=== PATIENT | female | born 1990 | race American Indian/Alaskan Native ===

== ENCOUNTER 2016-12-06 00:22 | Emergency (ER) | payer BC ==
[2016-12-06 04:27] LABS: Bilirubin,Urine NEG (Negative); Blood,Urine NEG (Negative); Ketones,Urine NEG (Negative); Leukocyte Esterase,Urine SM (Negative); Mucus,Urine FEW /HPF; Nitrite,Urine NEG (Negative); Protein,Urine <15 mg/dL mg/dL (Negative)
--- NOTE | 2016-12-06 06:17 | Emergency Department Report ---
ED General Adult HPI - General Chief complaint: Back Pain/Injury Stated complaint: LOWER R BACK PAIN Time Seen by Provider: 12/06/16 06:13 Source: patient Mode of arrival: Ambulatory Limitations: No Limitations - History of Present Illness Initial comments: pt is a 26 y/o aaf with who presents for low back pain with urinary frequency urgency and hesitency x 1 week , LMP 07/2016 on norplant , pt is not sexually active for past 2 yrs, there is no fever no chills no n/v Onset/Timin -: week(s) Radiation: flank Severity scale (0 -10): 7 Quality: sharp Consistency: intermittent Improves with: none, other (nsaid) Worsens with: other (voiding ) Associated Symptoms: denies: confusion, chest pain, cough, diaphoresis, fever/ chills, headaches, loss of appetite, malaise, nausea/vomiting, rash, shortness of breath, syncope, weakness Treatments Prior to Arrival: NSAID - Related Data Home Medications Medication Instructions Recorded Confirmed Last Taken Flexeril 10 MG TAB 10 mg PO TID PRN 12/06/16 12/06/16 1 Day Ago Ibuprofen 600 mg PO TID PRN 12/06/16 12/06/16 1 Day Ago Previous Rx's Medication Instructions Recorded Last Taken Type Cephalexin [Keflex] 500 mg PO Q12HR #14 cap 12/06/16 Unknown Rx Naproxen 500 mg PO BID PRN #30 tablet 12/06/16 Unknown Rx Allergies Allergy/AdvReac Type Severity Reaction Status Date / Time NUTS Allergy Swelling,Hi Uncoded 03/03/14 15:10 ves SEAFOOD Allergy Swelling,Hi Uncoded 03/03/14 15:10 ves ED Review of Systems ROS: Stated complaint: LOWER R BACK PAIN Other details as noted in HPI Constitutional: denies: chills, fever Eyes: denies: eye pain, eye discharge, vision change ENT: denies: ear pain, throat pain Respiratory: denies: cough, shortness of breath, wheezing Cardiovascular: denies: chest pain, palpitations Endocrine: no symptoms reported Gastrointestinal: denies: abdominal pain, nausea, diarrhea Genitourinary: urgency, dysuria. denies: hematuria, discharge, abnormal menses , dyspareunia Musculoskeletal: back pain (flank pain right ). denies: joint swelling, arthralgia Skin: denies: rash, lesions Neurological: denies: headache, weakness, paresthesias Psychiatric: denies: anxiety, depression Hematological/Lymphatic: denies: easy bleeding, easy bruising ED Past Medical Hx - Past Medical History Previous Medical History?: Yes Hx Asthma: Yes ( A CHILD) - Surgical History Past Surgical History?: Yes Additional Surgical History: x2 - Social History Smoking Status: Never Smoker Substance Use Type: None - Medications Home Medications: Home Medications Medication Instructions Recorded Confirmed Last Taken Type Cephalexin [Keflex] 500 mg PO Q12HR #14 cap 12/06/16 Unknown Rx Flexeril 10 MG TAB 10 mg PO TID PRN 12/06/16 12/06/16 1 Day Ago History Ibuprofen 600 mg PO TID PRN 12/06/16 12/06/16 1 Day Ago History Naproxen 500 mg PO BID PRN #30 tablet 12/06/16 Unknown Rx ED Physical Exam - General Limitations: No Limitations General appearance: alert, in no apparent distress - Head Head exam: Present: atraumatic, normocephalic - Eye Eye exam: Present: normal appearance, PERRL, EOMI Pupils: Present: normal accommodation - ENT ENT exam: Present: mucous membranes moist - Neck Neck exam: Present: normal inspection - Respiratory Respiratory exam: Present: normal lung sounds bilaterally. Absent: respiratory distress - Cardiovascular Cardiovascular Exam: Present: regular rate, normal rhythm. Absent: systolic murmur, diastolic murmur, rubs, gallop - GI/Abdominal GI/Abdominal exam: Present: soft, normal bowel sounds. Absent: distended, tenderness, guarding, rebound, rigid, organomegaly, mass, bruit, pulsatile mass , hernia - Rectal Rectal exam: Present: deferred - Extremities Exam Extremities exam: Present: normal inspection - Back Exam Back exam: Present: normal inspection, full ROM, CVA tenderness (R) (mild tenderness ). Absent: tenderness, CVA tenderness (L), muscle spasm, paraspinal tenderness, vertebral tenderness, rash noted - Neurological Exam Neurological exam: Present: alert, oriented X3, CN II-XII intact, normal gait, reflexes normal - Psychiatric Psychiatric exam: Present: normal affect, normal mood - Skin Skin exam: Present: warm, dry, intact, normal color. Absent: rash ED Course Vital Signs 12/06/16 00:47 Temperature 97.4 F L Pulse Rate 87 Respiratory 18 Rate Blood Pressure 141/70 [Right] ED Medical Decision Making - Medical Decision Making pt is a 26 y/o aaf with who presents for low back pain with urinary frequency urgency and hesitency x 1 week , LMP 07/2016 on norplant , pt is not sexually active for past 2 yrs, there is no fever no chills no n/v , pt appears well nontoxic no abdominal tenderness no fever no chills mild cva tenderness no blood in urine per patient pt is not sexually active, hcg :negative, wbc, leuk, will treat for uti, keflex, naproxen for pain pt will follow up with primary care doctor in 2 days pt verbalized agreement and understanding of same. Critical care attestation.: If time is entered above; I have spent that time in minutes in the direct care of this critically ill patient, excluding procedure time. ED Disposition Clinical Impression: UTI (urinary tract infection) Qualifiers: Urinary tract infection type: acute cystitis Hematuria presence: without hematuria Qualified Code(s): N30.00 - Acute cystitis without hematuria Disposition: DC- TO HOME OR SELFCARE Is pt being admited?: No Does the pt Need Aspirin: No Condition: Good Instructions: Urinary Tract Infection in Women (ED) Prescriptions: Cephalexin [Keflex] 500 mg PO Q12HR #14 cap Naproxen 500 mg PO BID PRN #30 tablet PRN Reason: Pain Referrals: PRIMARY CARE, [Primary Care Provider] - 3-5 Days Forms: Work/School Release Form(ED) Time of Disposition: 06:25
[2016-12-06 06:40] VITALS: BP 140/78
== END 2016-12-06 06:40 | disposition home or self-care (01) ==
LOC: ED 00:22
DX: N39.0 Urinary tract infection, site not specified (principal); Z91.018 Allergy to other foods; Z91.013 Allergy to seafood
CPT/HCPCS: 81001; 81025; 99283